=== PATIENT | female | born 1985 | race Two or more races ===

== ENCOUNTER 2016-07-20 03:00 | Emergency (ER) | payer OTHER ==
[2016-07-20] MEDS ORDERED: HYDROmorphone 1 MG/ML SYRINGE IM STA (04:31)
[2016-07-20] MEDS ORDERED: LIDOCAINE 1% 50 ML MDV SUBQ STA (04:32)
[2016-07-20] MEDS ORDERED: HYDROmorphone 1 MG/ML SYRINGE ONE (04:34)
[2016-07-20] MEDS ORDERED: LIDOCAINE 1% 2 ML VIAL ONE (04:34)
[2016-07-20] MEDS ORDERED: oxyCOD/ACETAMIN 5 MG/325 MG TABLET PO STA (06:10)
[2016-07-20] MEDS ORDERED: CEPHALEXIN 250 MG CAPSULE PO STA (06:10)
[2016-07-20] MEDS ORDERED: oxyCOD/ACETAMIN 5 MG/325 MG TABLET PO ONE (06:12)
[2016-07-20] MEDS ORDERED: CEPHALEXIN 250 MG CAPSULE PO ONE (06:13)
[2016-07-20] MEDS ORDERED: BACITRACIN OINT TOP STA (06:18)
== END 2016-07-20 06:26 | disposition home or self-care (01) ==
DX: S05.42XA Penetrating wound of orbit with or without foreign body, left eye, initial encounter (principal); S02.82XA Fracture of other specified skull and facial bones, left side, initial encounter for closed fracture; M54.2 Cervicalgia; Y04.2XXA Assault by strike against or bumped into by another person, initial encounter; Y92.89 Other specified places as the place of occurrence of the external cause
CPT/HCPCS: 12011; 70486; 72125; 96372; 99284; A9270; J1170